=== PATIENT | male | born 1980 | race Two or more races ===

== ENCOUNTER 2024-08-02 19:23 | Inpatient (IN) | payer SELFPAY ==
[2024-08-02 19:23] VITALS: BMI 27.6
[2024-08-02 19:49] VITALS: BP 163/94; PULSE 86; RESP 18; TEMP 37.9; O2SAT 97
--- NOTE | 2024-08-02 19:52 | PD.EDABDPN ---
ED Abdominal Pain RME/HPI General Chief Complaint: Abdominal Pain Stated complaint: UPPER ABDOMINAL PAIN Time seen by provider: 08/02/24 19:53 Arrival date/time: 08/02/24 19:23 RME / HPI RME / HPI narrative: This section includes all my notes and documentations, including HPI, PE, and ED course. Isaias Kramer MD HPI: 44yo male with no significant past medical history presents to the ED for a chief complaint of epigastric pain x 10 days. Patient states his pain started 10 days ago after he ate spicy chicken and macaroni and cheese. Patient states his pain radiates to his lower abdomen and to his back. Patient reports associated decreased appetite. Patient states he was seen by his PCP on Saturday and was prescribed Famotidine, but it has not been improving his symptoms, so he came in for evaluation. No other complaints reported. ROS: All negative except as documented in HPI. Physical Exam: General: Alert and oriented. In obvious pain. Fever noted. Eyes: Conjunctivae and lids clear. ENT: No nasal congestion. Neck: Supple. Heart: RRR. Lungs: No respiratory distress. Good air movement. No rhonchi, wheezing, rales. Abdomen: Soft. Moderate RUQ tenderness on palpation. No distension. No rebound or guarding. Back: No CVA tenderness. Skin: Warm and dry. Neuro: Alert and oriented X 3. I reviewed all diagnostic test results. My review of the US gallbladder report is cholelithiasis. My review of the CT abdomen pelvis report is acute cholecysititis. Blood tests and urine tests are unremarkable. At this point, diagnoses include cholecystitis with fever. Treatment here included Tylenol with Codeine, Zofran, and Protonix. No significant improvement. I discussed the case with our surgeon and hospitalist. About the presentation and exam and diagnostics and treatments here. And need of further care in the hospital. Will accept the patient. I ordered n.p.o. status, IV fluids, Zofran, morphine, Toradol, and Zosyn. Isaias Kramer MD Related Data Allergies Allergy/AdvReac Type Severity Reaction Status Date / Time NKA* Allergy Uncoded 08/04/12 11:29 Review of Systems Review of Systems Systems Reviewed: All systems reviewed, normal except as documented Past Medical History Social History SMOKING STATUS: Never smoker ED Exam Narrative Physical exam: As noted in HPI. Course Quality Measures none Orders Category Date Time Status COVID-19 Screening Questionnaire NOW Care 08/02/24 23:42 Active Decision to Admit X1 Care 08/02/24 23:42 Active NPO NOW Care 08/02/24 23:43 Active Saline [Insert IV] NOW Care 08/02/24 23:43 Active Consult to General Surgery Stat Cons 08/02/24 23:38 Ordered Diet NPO (NOW) Diet 08/02/24 23:[address] abdomen pelvis wo con Stat Exams 08/02/24 19:53 Completed US gall bladder Stat Exams 08/02/24 19:53 Completed Amylase Stat Lab 08/02/24 21:03 Completed Bilirubin,Direct Stat Lab 08/02/24 21:03 Completed CBC Stat Lab 08/02/24 21:03 Completed CMP [Comprehensive Metabolic Panel] Stat Lab 08/02/24 21:03 Completed Lipase Stat Lab 08/02/24 21:03 Completed Magnesium Stat Lab 08/02/24 21:03 Completed UA, C/S IF [Urinalysis, C/S if Indicated] Stat Lab 08/02/24 21:16 Completed ACETAMINOPHEN w/COD 300-30 [Tylenol w/Cod #3] Med 08/02/24 21:35 Discontinued 2 tab PO X1 ONE Ketorolac Inj [Toradol Inj] Med 08/02/24 23:43 Discontinued 30 mg IVP X1 ONE Morphine Inj Med 08/02/24 23:43 Discontinued 4 mg IVP X1 ONE Ondansetron Inj [Zofran Inj] Med 08/02/24 23:43 Discontinued 4 mg IVP X1 ONE Ondansetron Odt [Zofran Odt] Med 08/02/24 21:35 Discontinued 4 mg PO X1 ONE Pantoprazole [Protonix] Med 08/02/24 19:53 Discontinued 40 mg PO X1 ONE Sodium Chloride 0.9% 1000 ml [Ns] 1,000 ml Med 08/02/24 23:43 Active IV 999 mls/hr Vital Signs Vital signs: Vital Signs Temperature 100.3 F 08/02/24 19:49 Pulse Rate 86 08/02/24 19:49 Respiratory Rate 18 08/02/24 19:49 Blood Pressure 163/94 H 08/02/24 19:49 Pulse Oximetry (%) 97 08/02/24 19:49 Oxygen Delivery Method Room Air 08/02/24 19:49 Abdominal Pain MDM MDM Narrative MDM Narrative:: Scribe Attestation: 08/02/24 - Sofia Lakhani am scribing for and in the presence of Dr. Kramer. 44yo male with no significant past medical history presents to the ED for a chief complaint of epigastric pain x 10 days. Patient states his pain started 10 days ago after he ate spicy chicken and macaroni and cheese. Patient states his pain radiates to his lower abdomen and to his back. Patient reports associated decreased appetite. Patient states he was seen by his PCP on Saturday and was prescribed Famotidine, but it has not been improving his symptoms, so he came in for evaluation. Patient denies any N/V/D, fever, chills, cough, dysuria, hematuria or any other associated symptoms. Denies any previous abdominal surgeries. No other complaints reported. Patient data External records reviewed:: [facility] previous records (Per chart review, patient has no previous ED visits or admissions to this facility.) Clinical information provided by:: patient Social determinants that could affect healthcare access:: none Patient has the following chronic illnesses:: none How is presenting disease/condition affected by chronic disease/condition?: no chronic disease Evaluation data The following diagnostics were reviewed and interpreted by me:: lab results and radiology exam(s) Lab and/or radiology exams considered but not ordered:: none Interpretation Summary: I reviewed all diagnostic test results. My review of the US gallbladder report is cholelithiasis. My review of the CT abdomen pelvis report is acute calculus cholecysititis. Blood tests and urine tests are unremarkable. Medications / Prescriptions Medications or Prescriptions considered but not ordered:: none Medication administrations:: Medication Administration History Sodium Chloride (Ns) 1,000 mls @ 999 mls/hr IV .Q1H1M ONE Stop: 08/03/24 00:43 Discontinued Medications Acetaminophen/Codeine Phosphate (Acetaminophen W/Cod 300-30 Tablet) 2 tab PO X1 ONE Stop: 08/02/24 21:36 Last Admin: 08/02/24 22:55 Dose: 2 tab Documented By: Ketorolac Tromethamine (Ketorolac Inj 30 Mg/Ml Vial) 30 mg IVP X1 ONE Stop: 08/02/24 23:44 Morphine Sulfate (Morphine Sulf Inj 10 Mg/Ml Vial) 4 mg IVP X1 ONE Stop: 08/02/24 23:44 Ondansetron HCl (Ondansetron Odt 4 Mg Tabrap) 4 mg PO X1 ONE; Protocol Stop: 08/02/24 21:36 Last Admin: 08/02/24 22:57 Dose: 4 mg Documented By: Ondansetron HCl (Ondansetron Inj 2 Mg/Ml Inj 2 Ml) 4 mg IVP X1 ONE; Protocol Stop: 08/02/24 23:44 Pantoprazole Sodium (Pantoprazole 40 Mg Tablet) 40 mg PO X1 ONE Stop: 08/02/24 19:54 Last Admin: 08/02/24 20:23 Dose: 40 mg Documented By: SHAWNA Tylenol with Codeine, Zofran, Pantoprazole did not provide significant improvement. I ordered n.p.o. status, IV fluids, Zofran, morphine, Toradol, and Zosyn. Consultations Consultation(s) initiated? (list below): Yes Consultation #1 (Physician, Specialty, Details): I discussed the case with Dr. Tovar.? About the presentation and exam and diagnostics and treatments here.? And need of further care in the hospital.? Will accept the patient for surgery. Time: 23:36 Diagnosis Differential diagnosis abdominal pain: acute appendicitis, calculus of kidney, constipation, diverticulitis, pancreatitis, small bowel obstruction and other (cholelithiasis, cholecystitis) Most likely diagnosis given after review of the tests above:: Cholecystitis Admission Indicated Admission indicated?: indicated Explain why admission is indicated or not indicated:: Acute cholecystitis with intractable pain for 10 days. Admission Request Was there a request for admission?: Yes Admission Attestation Admission request attestation: Discussed case with Hospitalist service regarding admission. Discussed patients ED course, exam findings, labs, and radiology results. The Hospitalist [agrees] to accept the patient for admission. Disposition Plan Disposition Plan: Admit Discharge Plan Plan Patient Disposition: Admit Acute Care w/in Hospital Prescriptions/Referrals Referrals: Taz Berg MD [Primary Care Provider] - In 1 week Problem List Clinical Impression: Cholecystitis, Fever Patient/Caregiver Discharge Instructions Print Language: Colombian Stand Alone Forms: Rhianna Award Info., Patient Portal Info Letter
--- NOTE | 2024-08-02 19:53 | XR_ITS ---
Examination: CT abdomen and pelvis without contrast. Coronal 3-D reconstructions. Sagittal 2-D reconstructions. Date and time of exam:August 02, 2024 2137 hours INDICATIONS: Epigastric pain beginning 10 days ago CTDI: vol (mGy): 7.81 DLP: (mGycm): 485 Technique: Axial images of the abdomen have been obtained, 3 mm slice thickness Intravenous contrast material has not been administered. Low dose protocols were performed. One or more of the following dose reduction techniques were used; automated exposure control, adjustment of the mA and/or KV according to patient size, use of iterative reconstruction technique. Findings: Multiple gallstones Gallbladder wall is edematous No focal liver or splenic lesion No pancreatic mass No renal or ureteral calculi, no hydronephrosis 17 mm fat-containing umbilical hernia. Normal appendix No diverticulitis Intact osseous structures IMPRESSION: Acute calculus cholecystitis
--- NOTE | 2024-08-02 19:53 | XR_ITS ---
Examination: Abdomen sonogram, Limited Date and time of exam: August 02, 2024 2032 hours INDICATIONS: Epigastric pain beginning 2 weeks ago Technique: Real-time watkins scale transabdominal sonographic images of the upper abdomen obtained. Findings: Gallbladder sludge 14 mm gallstone Gallbladder wall 0.51 cm Common bile duct 0.2 cm Pancreas obscured by bowel gas Liver 15.8 cm lobular contour and no focal liver lesions Normal hepatopedal portal venous flow Patent IVC IMPRESSION: Cholelithiasis, recommend HIDA scan or MRCP follow-up to confirm cholecystitis
[2024-08-02] MEDS: PANTOPRAZOLE 40 MG TABLET PO (20:23)
[2024-08-02 21:19] LABS: Basophils % (Auto) 0 % (0-2.5); Eosinophils # (Auto) 0.1 Thou/mm3 (0.0-0.5); Eosinophils % (Auto) 1 % (0-10); Hematocrit 41.8 % (41.0-53.0); Hemoglobin 14.4 g/dL (13.5-16.0); Immature Granulocytes % (Auto) 0 % (0-0); Immature Granulocytes Auto 0.03 Thou/mm3 (0.00-0.00); Lymphocytes # (Auto) 1.9 Thou/mm3 (1.0-4.8); Lymphocytes % (Auto) 20 % (10-50); Mean Corpuscular HGB Conc 34.4 g/dl (31.0-37.0); Mean Corpuscular Hemoglobin 25.3 pg (25.0-35.0); Mean Corpuscular Volume 73 fL (80-100); Monocytes # (Auto) 0.9 Thou/mm3 (0.0-0.8); Monocytes % (Auto) 9 % (0-12); Neutrophils # (Auto) 6.8 Thou/mm3 (1.8-7.7); Neutrophils % (Auto) 69 % (37-80); Nucleated Red Blood Cell % 0 /100 WBC (0); Platelet Count 413 Thou/mm3 (140-440); RDW Standard Deviation 35.4 fL (35.1-43.9); White Blood Count 9.8 Thou/mm3 (3.8-10.6)
[2024-08-02 21:23] LABS: Collection Type, Urine Clean Catch; Squamous Epithelial Cell,Urine 0 /hpf (0-5)
[2024-08-02 21:38] LABS: Bilirubin,Urine Negative (Negative); Blood,Urine Negative (Negative); Clarity,Urine Clear (Clear/Hazy); Color,Urine Lt-Yellow (Lt Yel-Yel); Culture Indicated,Urine Not Indicated; Glucose, Urine Negative (Negative); Ketones,Urine Negative (Negative); Leukocyte Esterase,Urine Negative (Negative); Nitrite,Urine Negative (Negative); Protein,Urine Negative (Neg - Trace); RBC,Urine 1 /hpf (0-3); Specific Gravity,Urine 1.014 (1.001-1.035); Urobilinogen,Urine Negative mg/dL (0.0-1.0); WBC,Urine < 1 /hpf (0-5)
[2024-08-02 22:36] LABS: Alanine Aminotransferase 41 U/L (10-49); Albumin, Serum 5.2 gm/dL (3.5-5.0); Albumin/Globulin Ratio 1.6 (1.2-2.2); Alkaline Phosphatase 174 U/L (46-116); Anion Gap 12 (7-16); Aspartate Amino Transferase 35 U/L (0-34); BUN/Creatinine Ratio 8 Ratio (12-20); Bilirubin,Direct 0.2 mg/dL (0.0-0.3); Bilirubin,Total 0.5 mg/dL (0.3-1.2); Blood Urea Nitrogen 8 mg/dL (9-23); Calcium 10.8 mg/dL (8.3-10.6); Calcium (Corrected) 10.8 mg/dL (8.5-10.1); Carbon Dioxide 25.9 mMol/L (20.0-31.0); Chloride 97 mMol/L (98-107); Estimated Creatinine Clearance 96.2 mL/min (>60); Globulin 3.3 gm/dL (2.3-3.5); Glucose 114 mg/dL (74-106); Lipase 30 U/L (12-53); Magnesium 2.2 mg/dL (1.6-2.6); Osmolality,Calculated 269 (275-295); Potassium 4.1 mMol/L (3.4-5.1); Sodium 135 mMol/L (136-145); Total Protein 8.5 gm/dL (5.7-8.2); eGFR > 60 See Note
[2024-08-02 22:48] LABS: Amylase 32 U/L (30-118)
[2024-08-02] MEDS: ACETAMINOPHEN w/COD 300-30 TABLET 2 TAB PO (22:55)
[2024-08-02] MEDS: ONDANSETRON ODT 4 MG TABRAP PO (22:57)
[2024-08-02 23:23] VITALS: BP 155/85; PULSE 98; RESP 16; TEMP 37; O2SAT 99
[2024-08-03] VITALS (16 sets, daily range): BP systolic 124–153; BP diastolic 75–99; PULSE 62–85; RESP 16–99; TEMP 36.1–37.4; O2SAT 97–100; BMI 27.3
--- NOTE | 2024-08-03 00:24 | PD.RESHP ---
Documentation for date of: 08/03/24 HPI History of Present Illness History of present illness: Patient is a 44-year-old male with a past medical history of hypertension, who presented to the ER complaining of epigastric pain for the last 10 days. Patient reported the he was in usual state of health, but after having greasy meal, started having epigastric pain, associated with chills, nausea. Patient describes the pain as bandlike, moderate in intensity, no radiation, improves on empty stomach and is worse after meals. Patient stated he also has been having back pain for the past few days and started taking ibuprofen and Advil 3-4 times a day, since . Ibuprofen improved the back pain but had no improvement or worsening of the back pain, also reported one episode of black-colored stools. Subsequent bowel movements have been normal. In the ER patient was found to have a Tmax 100.3 F, BP 163/94, HR 86/min,, WBC 9.8, hemoglobin 14.4, MCV 73, platelets 413, normal renal function, AST 35 ALT 41, current phosphorus 174, normal T. bili, hypercalcemia calcium 10.8, CT abdomen pelvis showed acute calculus cholecystitis, ultrasound gallbladder showed 14 mm stone in the gallbladder. ER spoke to general surgeon Dr. Tovar who recommended admitting the patient for cholecystectomy in the AM. Review of Systems Review of Systems Systems Reviewed: All systems reviewed, normal except as documented Past Medical History Past Medical History NEUROLOGIC: Negative Neurological Disorders CARDIAC: Negative Cardiac Disorders or Congestive Heart Failure RESPIRATORY: Negative Respiratory Disorders or Chronic Obstructive Pulmonary Disease (COPD) GASTROINTESTINAL: Negative Gastrointestinal Disorders GENITOURINARY: Negative Genitourinary Disorders or Renal Disease ENT: Negative History of ENT Problems ENDOCRINE: Negative Diabetes Mellitus Type 1 or Diabetes Mellitus Type 2 HEMATOLOGIC: Negative Blood Disorders Family History FAMILY HISTORY: Negative Family Cardiac Disorders Social History SMOKING STATUS: Never smoker Exam Vital Signs Temp Pulse Resp BP Pulse Ox O2 Del Method 100.3 F 86 18 163/94 H 97 Room Air 08/02/24 19:49 08/02/24 19:49 08/02/24 19:49 08/02/24 19:49 08/02/24 19:49 08/02/24 19:49 Narrative Exam General: AOx3, cooperative Skin: Intact, no cyanosis or edema noted. HEENT: Atraumatic/normocephalic, AIDAN, neck supple Heart: RRR, S1 and S2 without clicks or murmurs Lungs: Clear on auscultation bilaterally, no difficulty breathing Abdomen: Soft, mildy tender in epigastrium, negative myers's sign. Bowel sounds present . Vascular: Peripheral pulses palpable Neuro: No focal neurological deficits noted. Results: Labs 08/02/24 21:03 08/02/24 21:03 Labs: Short CBC 08/02/24 Range/Units 21:03 WBC 9.8 (3.8-10.6) Thou/mm3 Hgb 14.4 (13.5-16.0) g/dL Hct 41.8 (41.0-53.0) % Plt Count 413 (140-440) Thou/mm3 BMP 08/02/24 21:03 Sodium 135 L Potassium 4.1 Chloride 97 L Carbon Dioxide 25.9 BUN 8 L Creatinine 1.0 Glucose 114 H Calcium 10.8 H Liver Function 08/02/24 Range/Units 21:03 Total Bilirubin 0.5 (0.3-1.2) mg/dL Direct Bilirubin 0.2 (0.0-0.3) mg/dL AST 35 H (0-34) U/L ALT 41 (10-49) U/L Alkaline Phosphatase 174 H (46-116) U/L Albumin 5.2 H (3.5-5.0) gm/dL Urine 08/02/24 Range/Units 21:16 Urine Color Lt-Yellow (Lt Yel-Yel) Urine Clarity Clear (Clear/Hazy) Urine pH 6.0 (5.0-7.0) Ur Specific [place] 1.014 (1.001-1.035) Urine Protein Negative (Neg - Trace) Urine Glucose (UA) Negative (Negative) Quality Measures Quality Measures none Medications Home Medications and Allergies Home Medications ?Medication ?Instructions ?Recorded ?Confirmed ?Type famotidine 40 mg tablet 40 mg PO DAILY 08/03/24 08/03/24 History Allergies Allergy/AdvReac Type Severity Reaction Status Date / Time NKA* Allergy Uncoded 08/04/12 11:29 Visit Medications Acetaminophen (Acetaminophen 325 Mg Tablet) 650 mg PO Q6H PRN PRN Reason: PAIN OR FEVER > 101 Stop: 09/02/24 00:15 Sodium Chloride (Ns) 1,000 mls @ 999 mls/hr IV .Q1H1M ONE Stop: 08/03/24 00:43 Piperacillin/Tazobactam/Dextrose (Zosyn) 3.375 gm in 50 mls @ 100 mls/hr IV X1 ONE Stop: 08/03/24 00:31 Piperacillin/Tazobactam/Dextrose (Zosyn) 50 mls @ 100 mls/hr IV Q8HR SPENCER Stop: 08/10/24 05:59 Morphine Sulfate (Morphine Sulf Inj 10 Mg/Ml Vial) 2 mg IVP Q4H PRN PRN Reason: PAIN SCALE 4-10(Mod-Sev Ondansetron HCl (Ondansetron Inj 2 Mg/Ml Inj 2 Ml) 4 mg IV Q6H PRN; Protocol PRN Reason: NAUSEA OR VOMITING Stop: 09/02/24 00:15 Pantoprazole Sodium (Pantoprazole Inj 40 Mg Vial) 40 mg IVP QDAY SPENCER Stop: 09/02/24 00:19 Sennosides (Senna Tablet) 2 tab PO BID PRN; Protocol PRN Reason: CONSTIPATION Stop: 09/02/24 00:15 Discontinued Medications Acetaminophen/Codeine Phosphate (Acetaminophen W/Cod 300-30 Tablet) 2 tab PO X1 ONE Stop: 08/02/24 21:36 Last Admin: 08/02/24 22:55 Dose: 2 tab Ketorolac Tromethamine (Ketorolac Inj 30 Mg/Ml Vial) 30 mg IVP X1 ONE Stop: 08/02/24 23:44 Morphine Sulfate (Morphine Sulf Inj 10 Mg/Ml Vial) 4 mg IVP X1 ONE Stop: 08/02/24 23:44 Ondansetron HCl (Ondansetron Odt 4 Mg Tabrap) 4 mg PO X1 ONE; Protocol Stop: 08/02/24 21:36 Last Admin: 08/02/24 22:57 Dose: 4 mg Ondansetron HCl (Ondansetron Inj 2 Mg/Ml Inj 2 Ml) 4 mg IVP X1 ONE; Protocol Stop: 08/02/24 23:44 Pantoprazole Sodium (Pantoprazole 40 Mg Tablet) 40 mg PO X1 ONE Stop: 08/02/24 19:54 Last Admin: 08/02/24 20:23 Dose: 40 mg Assessment & Plan Plan #Acute calculus cholecystitis ? IV Zosyn 3.375 mg every 8 hourly ? Follow-up blood cultures ? General Surgeon Dr. Tovar is consulted, appreciate recommendations ? Keep patient n.p.o., possible surgery in the a.m. ? IV morphine as needed for pain #Melena Reported 1 episode of dark stools 2 days ago, hemoglobin stable, stable vitals, history of NSAIDs use for back pain, will continue to monitor for drop in H&H, ? Stool occult blood ordered ? IV Protonix for GI prophylaxis #History of hypertension Patient reported he was diagnosed hypertension 6 years ago, but incorporated lifestyle changes which improved his blood pressure, is currently not on any medications. ? P.o. losartan 25 mg daily initiated ? IV labetalol as needed Plan of care discussed with attending physician Diane pGY2 Attending Provider Attestation/Addendum 44-year-old male patient was admitted for abdominal pain mainly in the epigastric area following meals. The patient has elevated alkaline phosphatase and AST. She has normal bilirubin. Patient has gallbladder stones. General surgery evaluation was requested. Patient also presented with 1 episode of melena. Fecal occult blood testing was requested. The patient takes NSAIDs for chronic back pain. I discussed with and supervised the resident physician who took care of this patient. I agree with the assessment and plan as above.
[2024-08-03] MEDS: KETOROLAC INJ 30 MG/ML VIAL IVP (00:31)
[2024-08-03] MEDS: SODIUM CHLORIDE 0.9% 1000 ML 1,000 ML 999 ML IV (00:31)
[2024-08-03] MEDS: PIPER/TAZO 3.375 GM PREMIX 3.375 GM/50 ML BAG IV (00:34)
[2024-08-03] MEDS: PANTOPRAZOLE INJ 40 MG VIAL IVP ×2 (00:45→08:43)
[2024-08-03] MEDS: PIPER/TAZO 3.375 GM PREMIX 3.375 G/50 ML BAG IV (05:45)
[2024-08-03 06:23] LABS: Basophils % (Auto) 0 % (0-2.5); Eosinophils # (Auto) 0.1 Thou/mm3 (0.0-0.5); Eosinophils % (Auto) 1 % (0-10); Hematocrit 38.7 % (41.0-53.0); Immature Granulocytes % (Auto) 0 % (0-0); Immature Granulocytes Auto 0.02 Thou/mm3 (0.00-0.00); Lymphocytes # (Auto) 2.4 Thou/mm3 (1.0-4.8); Lymphocytes % (Auto) 34 % (10-50); Mean Corpuscular HGB Conc 33.6 g/dl (31.0-37.0); Mean Corpuscular Hemoglobin 25.2 pg (25.0-35.0); Mean Corpuscular Volume 75 fL (80-100); Monocytes # (Auto) 0.9 Thou/mm3 (0.0-0.8); Monocytes % (Auto) 12 % (0-12); Neutrophils # (Auto) 3.7 Thou/mm3 (1.8-7.7); Neutrophils % (Auto) 52 % (37-80); Nucleated Red Blood Cell % 0 /100 WBC (0); Platelet Count 350 Thou/mm3 (140-440); RDW Standard Deviation 35.4 fL (35.1-43.9); Red Blood Count 5.16 Miln/mm3 (4.50-5.90); White Blood Count 7.1 Thou/mm3 (3.8-10.6)
[2024-08-03 06:28] LABS: Prothrombin Time 11.3 Seconds (9.0-12.2)
[2024-08-03 07:55] LABS: Alanine Aminotransferase 233 U/L (10-49); Albumin, Serum 4.2 gm/dL (3.5-5.0); Alkaline Phosphatase 278 U/L (46-116); Anion Gap 10 (7-16); Aspartate Amino Transferase 428 U/L (0-34); BUN/Creatinine Ratio 7 Ratio (12-20); Bilirubin,Direct 0.7 mg/dL (0.0-0.3); Bilirubin,Total 1.3 mg/dL (0.3-1.2); Blood Urea Nitrogen 7 mg/dL (9-23); Calcium 9.2 mg/dL (8.3-10.6); Carbon Dioxide 27.4 mMol/L (20.0-31.0); Cardiac Risk Estimate 3.9 RATIO (4.0-6.7); Chloride 104 mMol/L (98-107); Cholesterol 139 mg/dL (132-200); Estimated Creatinine Clearance 96.2 mL/min (>60); Glucose 114 mg/dL (74-106); HDL Cholesterol 36 mg/dL (40-60); LDL Cholesterol,Calculated 84 mg/dL (0-130); Magnesium 2.1 mg/dL (1.6-2.6); Osmolality,Calculated 280 (275-295); Phosphorous 4.5 mg/dL (2.4-5.1); Potassium 4.1 mMol/L (3.4-5.1); Sodium 141 mMol/L (136-145); Total Protein 6.7 gm/dL (5.7-8.2); Triglycerides 97 mg/dL (30-150); eGFR > 60 See Note
[2024-08-03 08:12] LABS: Thyroid Stimulating Hormone 2.17 uIU/mL (0.55-4.78)
[2024-08-03] MEDS: LOSARTAN POTASSIUM 25 MG TABLET PO (08:43)
[2024-08-03] MEDS: ACETAMINOPHEN 325 MG TABLET 650 MG PO (08:47)
--- NOTE | 2024-08-03 09:03 | XR_ITS ---
Examination: Abdomen sonogram, Limited Date and time of exam: August 03, 2024 0952 hours INDICATIONS: Elevated liver function tests on laboratory examination today, epigastric pain beginning 2 weeks ago worse today, CT examination August 02, 2024 acute calculus cholecystitis Technique: Real-time watkins scale transabdominal sonographic images of the upper abdomen obtained. Findings: Gallbladder sludge with multiple gallstones Gallbladder wall is thickened 0.42 cm with edema Common bile duct 0.3 cm Pancreatic head 2.7 cm Liver 16.0 cm fatty infiltration no focal liver lesions Normal hepatopedal portal venous flow Patent IVC IMPRESSION: Acute calculus cholecystitis
--- NOTE | 2024-08-03 09:56 | PD.RESPRO ---
Documentation for date of: 08/03/24 Subjective Subjective Interval history: Overnight admission. Seen and examined at bedside and patient endorses epigastric and right upper quadrant discomfort but is managed well with current regimen. Denies nausea, vomiting, and has not had any BMs, but does endorse some chills and sweats. No fevers overnight, no leukocytosis. However, T. bili increased from 0.5 to 1.3, AST increased from 35 to 428, ALT increased from 41 to 233, ALP increased from 174 to 278. Due to worsening LFTs, T. bili, and ALP will order an ultrasound to evaluate for any changes from yesterday. Will also order FOBT given history of melena due to NSAID use. Currently n.p.o. for pending cholecystectomy. Exam Vital Signs Temp Pulse Resp BP Pulse Ox O2 Del Method 97.4 F 62 18 135/85 H 97 Room Air 08/03/24 08:00 08/03/24 08:43 08/03/24 08:28 08/03/24 08:43 08/03/24 08:00 08/03/24 08:00 Narrative Exam General: AOx3, no acute distress, able to speak full sentences HEENT: NC/AT, mucous membranes moist, bilateral sclera anicteric Cardiovascular: regular rate and rhythm, S1/S2 present, no murmurs appreciated Pulmonary: clear to auscultation bilaterally, no rales/rhonchi/wheezes Abdominal: RUQ and epigastric tenderness to palpation, soft, non-distended, no rebound/guarding, normal bowel sounds present Musculoskeletal: normal ROM, no peripheral edema Skin: warm and dry, intact, no rashes Neuro: CN II-XII intact, no focal deficits Objective Labs 08/03/24 05:26 08/03/24 05:26 Labs: Laboratory Results - last 24 hr 08/02/24 08/02/24 08/03/24 21:03 21:16 05: WBC 9.8 7.1 RBC 5.70 5.16 Hgb 14.4 13.0 L Hct 41.8 38.7 L MCV 73 L 75 L MCH 25.3 25.2 MCHC 34.4 33.6 RDW Std Deviation 35.4 35.4 Plt Count 413 350 D Neut % (Auto) 69 52 Lymph % (Auto) 20 34 [place] % (Auto) 9 12 Eos % (Auto) 1 1 Baso % (Auto) 0 0 Neut # (Auto) 6.8 3.7 Lymph # (Auto) 1.9 2.4 [place] # (Auto) 0.9 H 0.9 H Eos # (Auto) 0.1 0.1 Baso # (Auto) 0.0 0.0 Immature Gran # (Auto) 0.03 H 0.02 H Absolute Nucleated RBC 0.00 0.00 Immature Gran % 0 0 Nucleated RBC % 0 0 PT 11.3 INR 1.0 Sodium 135 L 141 Potassium 4.1 4.1 Chloride 97 L 104 Carbon Dioxide 25.9 27.4 Anion Gap 12 10 BUN 8 L 7 L Creatinine 1.0 1.0 Estim Creat Clear Calc 96.2 96.2 eGFR > 60 > 60 BUN/Creatinine Ratio 8 L 7 L Glucose 114 H 114 H Calculated Osmolality 269 L 280 Calcium 10.8 H 9.2 D Corrected Calcium 10.8 H Phosphorus 4.5 Magnesium 2.2 2.1 Total Bilirubin 0.5 1.3 H D Direct Bilirubin 0.2 0.7 H AST 35 H 428 H ALT 41 233 H Alkaline Phosphatase 174 H 278 H D Total Protein 8.5 H 6.7 Albumin 5.2 H 4.2 D Globulin 3.3 Albumin/Globulin Ratio 1.6 Triglycerides 97 Cholesterol 139 LDL Cholesterol, Calc 84 HDL Cholesterol 36 L Cholesterol/HDL Ratio 3.9 L Amylase 32 Lipase 30 TSH 2.17 Ur Collection Type Clean Catch Urine Color Lt-Yellow Urine Clarity Clear Urine pH 6.0 Ur Specific [place] 1.014 Urine Protein Negative Urine Glucose (UA) Negative Urine Ketones Negative Urine Blood Negative Urine Nitrite Negative Urine Bilirubin Negative Urine Urobilinogen (Auto) Negative Ur Leukocyte Esterase Negative Urine RBC 1 Urine WBC < 1 Ur Squamous Epith Cells 0 Urine Bacteria None Ur Culture Indicated? Not Indicated Quality Measures Quality Measures none Assessment & Plan Assessment Current Active Medications: Generic Name Dose Route Start Last Admin Trade Name Freq PRN Reason Stop Dose Admin Acetaminophen 650 mg 08/03/24 00:32 08/03/24 08:47 Acetaminophen 325 Mg Tablet PO 09/02/24 00:15 650 mg Q6H PRN Administration PAIN 1-3 OR FEVER > 101 Piperacillin/Tazobactam/Dextrose 3.375 g in 50 mls @ 12.5 mls/hr 08/03/24 06:00 08/03/24 05:45 Zosyn IV 08/10/24 05:59 12.5 mls/hr Q8HR SPENCER Administration Labetalol HCl 10 mg 08/03/24 01:10 Labetalol Inj 5 Mg/Ml Vial 20 Ml IVP 09/02/24 05:59 Q6HR PRN SBP>170 Losartan Potassium 25 mg 08/03/24 09:00 08/03/24 08:43 Losartan Potassium 25 Mg Tablet PO 09/02/24 08:59 25 mg QDAY SPENCER Administration Morphine Sulfate 2 mg 08/03/24 00:18 Morphine Sulf Inj 10 Mg/Ml Vial IVP Q4H PRN PAIN SCALE 4-10(Mod-Sev Ondansetron HCl 4 mg 08/03/24 00:16 Ondansetron Inj 2 Mg/Ml Inj 2 Ml IV 09/02/24 00:15 Q6H PRN NAUSEA OR VOMITING Protocol Pantoprazole Sodium 40 mg 08/03/24 00:20 08/03/24 08:43 Pantoprazole Inj 40 Mg Vial IVP 09/02/24 00:19 40 mg QDAY SPENCER Administration Sennosides 2 tab 08/03/24 00:16 Senna Tablet PO 09/02/24 00:15 BID PRN CONSTIPATION Protocol Plan Zana Barone is a 44-year-old male with a past medical history of hypertension who presents with epigastric and right upper quadrant pain for 10 days found to have acute cholecystitis on imaging and admitted for further management of the same in addition to possible UGIB. #Acute calculus cholecystitis #Hyperbilirubinemia #Transaminitis T. bili increased from 0.5 to 1.3, AST increased from 35 to 428, ALT increased from 41 to 233, ALP increased from 174 to 278. Due to worsening LFTs, T. bili, and ALP will order an ultrasound to evaluate for any changes from admission. ? General Surgeon Dr. Tovar is consulted, appreciate recommendations ? Follow-up abdominal ultrasound ? IV Zosyn 3.375 mg every 8 hourly ? Follow-up blood cultures ? Keep patient n.p.o., possible surgery in a.m. ? IV morphine as needed for pain #Melena Reported 2 days worth of melena prior to admission and had already started to resolve. Hemoglobin stable, VSS, history of NSAIDs use for back pain. ? Stool occult blood ordered ? IV Protonix for GI prophylaxis #History of hypertension Reported he was diagnosed with hypertension 6 years ago, but incorporated lifestyle changes which improved his blood pressure, is currently not on any medications. ? Losartan 25 mg p.o. daily initiated ? IV labetalol as needed Hospital management: Disposition: pending cholecystectomy, follow-up FOBT Diet: NPO for procedure Lines: PIV DVT prophylaxis: SCDs GI prophylaxis: PPI CODE STATUS: full code ----- Plan discussed with attending physician Dr. Sultana Parr MD PGY-1 Internal Medicine Attending Provider Attestation/Addendum I attest that I was physically present for the evaluation, physical examination, lab and imaging review of the patient with the residents. I discussed the case with the residents and agree with the findings and plans of care as documented above. At bedside today, patient states he continues to have abdominal pain, slightly better compared to yesterday. Vital signs are stable. Labs results show worsening liver panel likely due to cholecystitis. Obtained liver ultrasound only shows calculus cholecystitis. Patient is planned for cholecystectomy with general surgery. There was a concern for dark stool, given patient's stable hemoglobin less likely to have ongoing bleeding, patient on Protonix, we will wait for occult blood before consulting GI. Kaiser Weinberg MD
--- NOTE | 2024-08-03 11:30 | PC.WOUND ---
pt was taken to OR.
--- NOTE | 2024-08-03 12:17 | PD.SURCONS ---
HPI Consult details History of present illness: 44M presenting with abdominal pain. Patient reports pain began 10 days ago, in the right upper quadrant worsened with eating fatty foods, the last few days the pain also radiated to the back. He denies any nausea or fever however in the ER he had a low-grade temperature. He denies any history of similar pain. Workup consistent with acute cholecystitis PMH: None PSH: None Meds: None Allergies: NKDA Social history: Non-smoker Family history: Father had brain cancer Review of Systems Review of Systems ROS Unobtainable: All systems reviewed & no additional complaints except as documented Meds Home Medications and Allergies Home Medications ?Medication ?Instructions ?Recorded ?Confirmed ?Type famotidine 40 mg tablet 40 mg PO DAILY 08/03/24 08/03/24 History Allergies Allergy/AdvReac Type Severity Reaction Status Date / Time No Known Allergies Allergy Unverified 08/03/24 10:49 Exam Vital Signs Temp Pulse Resp BP Pulse Ox O2 Del Method 97.4 F 62 18 135/85 H 97 Room Air 08/03/24 08:00 08/03/24 08:43 08/03/24 08:28 08/03/24 08:43 08/03/24 08:00 08/03/24 08:00 Constitutional Constitutional: no acute distress Routine Respiratory Exam Respiratory: Present no resp distress Routine Abdominal Exam Abdominal: Present soft and tenderness (Right upper quadrant tenderness); Absent distended or rebound Results Results: Laboratory Laboratory results: results reviewed Results: Imaging CT scan - abdomen: report reviewed US - abdomen: report reviewed Assessment & Plan Plan 44M presenting with signs and symptoms of acute cholecystitis. I explained benefits/risks of surgery including need for conversion open, bleeding, infection, injury to nearby structures requiring further procedures or major reconstructive surgery of the biliary tract which would require transfer to another center, as well as hernia and postoperative diarrhea. All questions were answered and patient agrees to proceed
--- NOTE | 2024-08-03 14:23 | PD.SUROPNT ---
Date of Procedure 08/03/24 Pre Op Diagnosis Acute cholecystitis Post Op Diagnosis Same Procedure Laparoscopic cholecystectomy Findings Acutely inflamed gallbladder with numerous stones Procedure Description After discussion of risks and benefits, patient was brought to the operating room, SCDs were placed and general anesthesia was induced. He received preoperative antibiotics and was prepped and draped in usual sterile fashion. After timeout an umbilical incision was made with a #15 blade and the skin was elevated. Veress needle was placed through the incision and proper positioning was confirmed with a drop test. The abdomen was insufflated to 15 mmHg at which point the Veress needle was exchanged for a 5 mm camera using a Visiport technique. There were no signs of injury from the point of entry. 3 additional ports were placed under direct vision, one 12 mm at the epigastrium, one 5 mm right subcostal and one 5 mm right anterior axillary line. Patient was placed in reverse Trendelenburg. The fundus of the gallbladder was grasped however was noted to be quite edematous so it was first aspirated with return of 25 cc of thick dark bile. After that the fundus was grasped and retracted cephalad and the infundibulum was grasped and retracted laterally. The stomach was somewhat distended so an OG was placed for decompression. Ultimately the critical view of safety was achieved and the cystic duct and cystic artery were clipped and transected in the usual fashion. The gallbladder was removed from the gallbladder bed using electrocautery. Of note there was a small accessory artery at the right base of the gallbladder which was bleeding during this dissection but it was clipped and transected in the usual fashion. The specimen was removed in an Endo Catch bag via the epigastric port. Hemostasis of the gallbladder bed was achieved with electrocautery and reinforced with Surgicel powder. The epigastric fascia was closed with 0 Vicryl suture using a Sav-Nisha. Because the patient had an pre-existing umbilical hernia I also closed the umbilical defect with a 0 Vicryl suture using a Sav-Nisha. Pneumoperitoneum was released and ports were removed under direct vision. Incisions were irrigated and infiltrated with half percent Marcaine for a total of 30 cc. Incisions were closed with 4 Monocryl and reinforced with Dermabond. Patient was extubated and brought to PACU in stable condition Pathology / specimen Other (Gallbladder) Estimated Blood Loss 50 Surgeon Faina Tovar MD Surgical Staff Operation Date: 08/03/24 12:45 Case Staff G[employer] WORKER: Marilee Joyner complex care nurse practitioner: Jazzmine Kennedy
--- NOTE | 2024-08-03 14:27 | PC.SS ---
Rounding: Pt pending Lacey
--- NOTE | 2024-08-03 14:34 | PD.RESDS ---
Planned Discharge Date 08/03/24 DS: Providers Provider Date of admission: 08/03/24 00:16 Primary care physician: Taz Berg MD Admitting Provider: Devonte Burdick MD Attending Provider on Admission: Devonte Burdick MD Consults: 08/02/24 23:38 Consult to General Surgery Stat Comment: Cholecystitis Consulting Provider: Faina Tovar Attending Provider on DC: Faraz Parr MD Discharging Provider: Faraz Parr MD DS: Diagnosis Problem List Completed Was Problem List Reviewed/Reconciled?: Yes Hospital Course Hospital Course Hospital course: Zana Barone is a 44-year-old male with a past medical history of hypertension who presents with epigastric and right upper quadrant pain for 10 days found to have acute cholecystitis on imaging and admitted for further management of the same in addition to possible UGIB. Following day T. bili increased from 0.5 to 1.3, AST increased from 35 to 428, ALT increased from 41 to 233, ALP increased from 174 to 278. Due to worsening LFTs, T. bili, and ALP. Repeat ultrasound ordered to evaluate changes seen on labs and showed acute calculus cholecystitis and no changes in CBD. Patient underwent uncomplicated laparoscopic cholecystectomy and was found to have an edematous gallbladder and 25 cc of thick dark bile was aspirated. Postprocedure, patient was cleared for discharge by general surgery with follow-up within 2 weeks. Will also instruct patient to follow-up with his PCP within 1 to 2 weeks to obtain FOBT to evaluate for melena. Otherwise, vital signs stable, afebrile and on room air. Labs noted as above. Diagnoses during admission: #Acute calculus cholecystitis s/p laparoscopic cholecystectomy #Hyperbilirubinemia #Transaminitis #Melena #History of hypertension Discharge instructions: ? Take percocet as needed for your pain ? Continue taking all other home medications as prescribed ? Follow-up with PCP within 1-2 weeks of discharge and obtain FOBT ? Follow-up with Dr. Tovar within 2 weeks of discharge ? Return to ED if symptoms worsen or recur ----- Plan discussed with attending physician Dr. Sultana Parr MD PGY-1 Internal Medicine Time Spent with Patient Time attestation: Total time spent providing and/or coordinating discharge services: Time spent: Less than 30 minutes Exam Vital Signs Temp Pulse Resp BP Pulse Ox O2 Del Method 97.4 F 62 18 135/85 H 97 Room Air 08/03/24 08:00 08/03/24 08:43 08/03/24 08:28 08/03/24 08:43 08/03/24 08:00 08/03/24 08:00 Narrative Exam General: AOx3, no acute distress, able to speak full sentences HEENT: NC/AT, mucous membranes moist, bilateral sclera anicteric Cardiovascular: regular rate and rhythm, S1/S2 present, no murmurs appreciated Pulmonary: clear to auscultation bilaterally, no rales/rhonchi/wheezes Abdominal: RUQ and epigastric tenderness to palpation, soft, non-distended, no rebound/guarding, normal bowel sounds present Musculoskeletal: normal ROM, no peripheral edema Skin: warm and dry, intact, no rashes Neuro: CN II-XII intact, no focal deficits Discharge Plan Plan Patient Disposition: HOME (Self Care) Care Plan Goals: ? Take percocet as needed for your pain ? Continue taking all other home medications as prescribed ? Follow-up with PCP within 1-2 weeks of discharge and obtain FOBT ? Follow-up with Dr. Tovar within 2 weeks of discharge ? Return to ED if symptoms worsen or recur Prescriptions/Referrals Prescriptions/Med Rec: New oxycodone-acetaminophen [Percocet] 5-325 mg tablet 1 tab PO Q6H MDD 4 PRN (Reason: pain) Qty: 10 0RF Continued famotidine 40 mg tablet 40 mg PO DAILY Patient Comments: TAKE 1 TABLET BY MOUTH DAILY Referrals: Taz Berg MD [Primary Care Provider] - Faina Tovar MD [Physician] - (You will receive a phone call to confirm a follow-up appointment with me in 2 weeks) Patient/Caregiver Discharge Instructions Other Discharge Activity Instructions:: Avoid lifting objects greater than 10 pounds for 6 weeks You may resume showering in 2 days, on 08/05 It is okay to get incisions wet in the shower but do not bathe or swim for 2 weeks Your incisions have skin glue on them which will fall off on its own and does not need to be replaced Your stitches will not need to be removed You may take ibuprofen as needed in between doses of Percocet or instead of Percocet for moderate pain If you develop worsening pain, nausea/vomiting, fever or jaundice please seek care in the ER Print Language: Croatian Stand Alone Forms: Rhianna Award Info., Patient Portal Info Letter Discharge Order Discharge Orders: Discharge (Routine); Ordered 08/03/24 Ordered By: Faraz Parr Quality Discharge Quality Measures VTE prophylaxis Attestestation MD Attestation I attest that I was physically present for the evaluation, physical examination, lab and imaging review of the patient with the residents. I discussed the case with the residents and agree with the findings and plans of care as documented above. Kaiser Weinberg MD
--- NOTE | 2024-08-03 15:08 | PC.NURSE ---
Patient returned from OR at this time. Vitals signs stable and pt denies discomfort.
--- NOTE | 2024-08-03 15:21 | SUR.PHASEI ---
1428 pt to pacu via ginorgermaine, oral airway in place resp even shallow, no distress noted, 4 small incisional sites noted, approximated with dermabond no oozing noted 1445 oral airway DC'd resp even unlabored normal depth, pt follow simple commands 1505 patient to med/surg in stable condition, incisional sites remain approximated with dermabond, no oozing noted, no c/o pain/n/v
[2024-08-03] MEDS: oxyCODONE/APAP 5/325 TABLET 1 TAB PO (15:39)
== END 2024-08-03 17:04 | disposition home or self-care (01) | DRG 418 ==
LOC: SERX 23:43 → S3SX 08-03 08:33 → SERHOLD 08-04 06:30
PROVIDERS: Student in an Organized Health Care Education/Training Program; Surgery; Admitting Provider Internal Medicine; Emergency Provider Emergency Medicine; PCP Family Medicine; Visit Provider Internal Medicine
PROC: 0FT44ZZ Resection of Gallbladder, Percutaneous Endoscopic Approach (ICD-10-PCS; CPT 47562; principal; 2024-08-03 12:30)
DX: K80.00 Calculus of gallbladder with acute cholecystitis without obstruction (principal); K92.1 Melena; I10 Essential (primary) hypertension; G89.29 Other chronic pain; M54.9 Dorsalgia, unspecified; K42.9 Umbilical hernia without obstruction or gangrene; K82.8 Other specified diseases of gallbladder; E83.52 Hypercalcemia; Z79.899 Other long term (current) drug therapy
CPT/HCPCS: 36415; 74176; 76705; 80048; 80053; 80061; 80076; 81001; 82150; 82248; 83690; 83735; 84100; 84443; 85025; 85610; 87811; 96365; 96375; 99285; A4217; A4649; J0131; J0694; J1100; J1885; J2250; J2405; J2470; J2543; J2704; J3010; J3490; J7030; Q0162; A9270

== ENCOUNTER 2024-09-09 13:23 | Outpatient (AMB) | payer BC, SELFPAY ==
--- NOTE | 2024-09-09 13:30 | PD.GSCLVISIT ---
Vital Signs - [facility] 09/09/24 13:31 Height 1.75 m Height Method Stated Weight 84.85 kg Weight Measurement Method Standing Scale BMI 27.7 BP 148/88 H Blood Pressure Source Automatic Cuff Blood Pressure Location Left Upper Arm Position Sitting Respiration 18 Pulse 68 Pulse Source Monitor Temp 97.2 F Temp Source Temporal Artery Scan Pulse Oximetry (%) 99 Oxygen Delivery Method Room Air Med/Allergies Allergies & Medications Allergies No Known Allergies Allergy (Verified 09/09/24 13:31) Medication Reconciliation famotidine 40 mg tablet 40 mg PO DAILY 08/03/24 [History Confirmed 09/09/24] oxycodone-acetaminophen 5 mg-325 mg tablet (Percocet) 1 tab PO Q6H PRN pain #10 tabs 08/03/24 [Rx Confirmed 09/09/24] MA Intake Visit Data Collection New Patient or Established: Established Patient (seen at [facility] within 3 years) Seen by Clinical Staff ONLY (RN/MA): No Reason for Visit:: POST OP LAB MANI Pain Present Currently: No PCP or OBGYN visit in last 3 months: Yes Hx Now: No Do You Feel Safe at Home: Yes Authorities Contacted: N/A Smoking Status Smoking Status: Never smoker Immunization / Flu Flu Vaccine in the Last 12 Months: No Flu Vaccine Exclusion Criteria: No Exclusion Criteria Past Medical History Past Medical History NEUROLOGIC: Negative Neurological Disorders or Seizures CARDIAC: Negative Cardiac Disorders or Congestive Heart Failure RESPIRATORY: Negative Chronic Obstructive Pulmonary Disease (COPD) GASTROINTESTINAL: Negative Gastrointestinal Disorders GENITOURINARY: Negative Genitourinary Disorders or Renal Disease ENDOCRINE: Negative Diabetes Mellitus Type 1 or Diabetes Mellitus Type 2 HEMATOLOGIC: Negative Blood Disorders OTHER HISTORY: Negative Blood Transfusions, Blood Transfusion Reaction or Anesthesia Reactions Family History FAMILY HISTORY: Negative Family Cardiac Disorders Social History SMOKING STATUS: Smoking status: Never smoker ALCOHOL: Alcohol Intake: Current ALCOHOL FREQUENCY: Alcohol Intake Frequency: holidays/special occasions only HOUSING: Housing: Apartment LIVES WITH: Lives With: Children HPI HPI Narrative 44M who presented with acute cholecystitis s/p lap mani 08/03 here for planned follow up. Pt reports feeling well overall with no pain, no nausea, he is eating well and having regular BMs. He did have some diarrhea for the first few weeks after surgery but this has resolved and he has returned to work without any difficulty ROS Review of Systems Systems Reviewed: All systems reviewed, normal except as documented Objective/Exam General General Appearance: alert, cooperative and well groomed Resp Respiratory exam: Absent respiratory distress Abdominal Abdominal exam: Present soft and incision (c/d/i, no erythema, no fluctuance or tenderness); Absent distention or tenderness Results Pathology of gallbladder: gangrenous acute and chronic cholecystitis with cholelithiasis Assessment & Plan Diagnosis / Problem List (1) Gangrenous cholecystitis: Status: Acute Assessment & Plan: 44M s/p lap mani 08/03 with findings of gangrenous cholecystitis, recovering well Follow up as needed Office Procedures GNS Level of Care Nursing/Assessment Patient Status: Established Patient Nursing Assessment/Reassesment: Medication Reconciliation, Update PMH in EMR and Vital Signs Coordination of Care: Complex Care and Chronic Disease 1-5, Consent,records obtained, informed consent, Education Simp Pt/Fam, Results/Orders obtained and Staff clarify orders Established Patient Charge Established Patient Point Assignment: 90 Established Patient Point Charge: EP Level 3 (80-115) Patient Portal Questionaires Social History Living Situation History Housing: Apartment Tobacco History Smoking Status: Never smoker Alcohol History Alcohol Intake: Current Alcohol Intake Frequency: holidays/special occasions only Domestic Abuse History Do You Feel Safe at Home: Yes Review of Systems Report any current symptoms Only answer those that you have currently: Past Medical History Past Medical History Have you ever been diagnosed with any of the following: Neurological Problems Seizures: No Cardiology Problems Congestive Heart Failure: No Respiratory Problems Chronic Obstructive Pulmonary Disease (COPD): No Genital/Urinary Problems Renal Disease: No Endocrine Problems Diabetes Mellitus Type 1: No Diabetes Mellitus Type 2: No Other Problems Blood Transfusions: No Blood Transfusion Reaction: No Anesthesia Reactions: No
[2024-09-09 13:31] VITALS: BP 148/88; PULSE 68; RESP 18; TEMP 36.2; O2SAT 99; BMI 27.7
== END 2024-09-09 13:37 | disposition home or self-care (01) ==
LOC: HODSRG 13:23
PROVIDERS: PCP Family Medicine; Referring Provider Family Medicine; Supervising Provider Surgery; Visit Provider Surgery
DX: Z48.815 Encounter for surgical aftercare following surgery on the digestive system (principal)
CPT/HCPCS: 99213; G0463